=== PATIENT | female | born 1980 ===

== ENCOUNTER 2017-03-01 23:34 | Emergency (ER) | payer MEDICAID ==
[2017-03-01 23:52] VITALS: RESP 18; TEMP 98.1; O2SAT 99; BMI 33.3
[2017-03-01] MEDS ORDERED: Amoxicillin-Clav 875-125 mg Tab PO STA (23:56)
[2017-03-01] MEDS ORDERED: Oxycodone/Acetaminophen 5/325 mg Tab PO STA (23:56)
--- NOTE | 2017-03-02 00:08 | ED PDOC ---
Arrival/HPI - General Chief Complaint: Dental Pain Time Seen by Provider: 03/01/17 23:56 Historian: Patient - History of Present Illness Narrative History of Present Illness (Text): 03/02/17 00:05 36 y/o female, no significant pmh, nkda, c/o dental pain x 1 week. Pt. stated that she is scheduled to have 4 molars removed because they are all infected, started to have pain again tonight, no pain medication taken at home, no facial swelling, no dizziness, no night sweat, no rash, no other medical or psychological complaints. Past Medical History - Provider Review Nursing Documentation Reviewed: Yes - Infectious Disease Hx of Infectious Diseases: None - Reproductive Menopause: No - Cardiac Hx Cardiac Disorders: No - Pulmonary Hx Respiratory Disorders: No - Neurological Hx Neurological Disorder: No - HEENT Hx HEENT Disorder: No - Renal Hx Renal Disorder: No - Endocrine/Metabolic Hx Endocrine Disorders: No - Hematological/Oncological Hx Blood Disorders: No - Integumentary Hx Dermatological Disorder: No - Musculoskeletal/Rheumatological Hx Musculoskeletal Disorders: No - Gastrointestinal Hx Gastrointestinal Disorders: No - Genitourinary/Gynecological Hx Genitourinary Disorders: No - Psychiatric Hx Psychophysiologic Disorder: No Hx Substance Use: No Family/Social History - Physician Review Nursing Documentation Reviewed: Yes Family/Social History: Unknown Family HX Smoking Status: Never Smoked Hx Alcohol Use: Yes Frequency of alcohol use: Socially Hx Substance Use: No Allergies/Home Meds Allergies/Adverse Reactions: Allergies No Known Allergies Allergy (Verified 03/01/17 23:54) Review of Systems - Review of Systems Constitutional: absent: Fatigue, Fevers Eyes: absent: Vision Changes ENT: Other (dental pain). absent: Hearing Changes Respiratory: absent: SOB, Cough Cardiovascular: absent: Chest Pain Gastrointestinal: absent: Abdominal Pain, Diarrhea, Nausea, Vomiting Skin: absent: Rash, Pruritis, Skin Lesions Physical Exam Vital Signs Reviewed: Yes Vital Signs Temp Pulse Resp BP Pulse Ox 03/01/17 23:34 98.1 F 70 18 151/85 H 99 Temperature: Afebrile Blood Pressure: Hypertensive Pulse: Regular Respiratory Rate: Normal Appearance: Positive for: Well-Appearing, Non-Toxic Pain Distress: Severe Mental Status: Positive for: Alert and Oriented X 3 - Systems Exam Head: Present: Atraumatic, Normocephalic Pupils: Present: PERRL Extroacular Muscles: Present: EOMI Conjunctiva: Present: Normal Mouth: Present: Moist Mucous Membranes Pharnyx: Present: Other (visible multiple dental caries with broked brown discoloration noted on the bilateral upper and lower molars noted, no gingival abcess or gingivitis. ). No: ERYTHEMA, EXUDATE, TONSILS ENLARGED Neck: Present: Normal Range of Motion Respiratory/Chest: Present: Clear to Auscultation, Good Air Exchange. No: Respiratory Distress, Accessory Muscle Use Cardiovascular: Present: Regular Rate and Rhythm, Normal S1, S2. No: Murmurs Abdomen: Present: Normal Bowel Sounds. No: Tenderness, Distention, Peritoneal Signs Back: Present: Normal Inspection Upper Extremity: Present: Normal Inspection. No: Cyanosis, Edema Lower Extremity: Present: Normal Inspection. No: Edema Neurological: Present: GCS=15, Speech Normal, Motor Func Grossly Intact, Gait Normal, Memory Normal Skin: Present: Warm, Dry, Normal Color. No: Rashes Psychiatric: Present: Alert, Oriented x 3, Normal Insight, Normal Concentration Medical Decision Making ED Course and Treatment: 03/02/17 00:08 -augmentin/perococet/motrin and visicous lidocaine. -Discharge home with augmentin, naproxen, viscous lidocaine, stay hydrated, follow up with your own pmd and dentist within 2 days, return to the ER for any new or worsening signs or symptoms. - Medication Orders Current Medication Orders: Discontinued Medications Amoxicillin/Clavulanate Potassium (Augmentin 875 Mg-125 Mg Tab) 1 tab PO STAT STA PRN Reason: Protocol Stop: 03/01/17 23:57 Ibuprofen (Motrin Tab) 600 mg PO STAT STA Stop: 03/01/17 23:57 Lidocaine HCl (Lidocaine 2% Viscous) 15 ml PO STAT STA Stop: 03/01/17 23:57 Oxycodone/Acetaminophen (Percocet 5/325 Mg Tab) 1 tab PO STAT STA Stop: 03/01/17 23:57 - PA / WOOD MOLDER / Resident Statement MD/DO has reviewed & agrees with the documentation as recorded. Disposition/Present on Arrival - Present on Arrival Any Indicators Present on Arrival: No History of DVT/PE: No History of Uncontrolled Diabetes: No Urinary Catheter: No History of Decub. Ulcer: No History Surgical Site Infection Following: None - Disposition Have Diagnosis and Disposition been Completed?: Yes Diagnosis: Pain, dental, Dental caries Disposition: HOME/ ROUTINE Disposition Time: 00:09 Patient Plan: Discharge Condition: GOOD Additional Instructions: -Discharge home with augmentin, naproxen, viscous lidocaine, stay hydrated, follow up with your own pmd and dentist within 2 days, return to the ER for any new or worsening signs or symptoms. Prescriptions: Amoxicillin/Clavulanate [Augmentin 875 MG-125 MG] 1 tab PO BID #20 tab Lidocaine 2% Viscous [Lidocaine HCl Viscous 20 Ml] 20 ml MM BID PRN #200 ml PRN Reason: Other Naproxen 500 mg PO BID PRN #22 tab PRN Reason: Other Referrals: Julien Infante, MOHIT [Non-Staff] - Follow up with primary Forms: [facility] (Bulgarian), WORK NOTE
[2017-03-02 01:59] VITALS: BP 145/84; PULSE 74
== END 2017-03-02 01:10 | disposition home or self-care (01) ==
LOC: MERGE 23:34 → ED 23:34
DX: K02.9 Dental caries, unspecified (principal); K08.89 Other specified disorders of teeth and supporting structures

== ENCOUNTER 2017-03-02 13:38 | Emergency (ER) | payer MEDICAID ==
[2017-03-02 13:38] VITALS: BMI 33.3
[2017-03-02 13:50] VITALS: TEMP 98.4
[2017-03-02] MEDS ORDERED: Oxycodone/Acetaminophen 5/325 mg Tab PO STA (13:50)
--- NOTE | 2017-03-02 14:06 | ED PDOC ---
Arrival/HPI - General Chief Complaint: Dental Pain Time Seen by Provider: 03/02/17 13:49 Historian: Patient - History of Present Illness Narrative History of Present Illness (Text): 03/02/17 14:03 36yr old female presents today with 1 week history of worsen left lower molar pain. pt states she was seen in er last night and given augmentin and naproxen without improvement in pain. pt denies fever/chills. no trismus or drooling. denies abdominal pain. no cp or sob. no difficulty breathing or swallowing.pt states she has scheduled appointment with dentist in 2 weeks. no other complaints. Time/Duration: 1 week Symptom Course: Worsening Quality: Throbbing Severity Level: 10 Past Medical History - Provider Review Nursing Documentation Reviewed: Yes - Travel History Have you recently traveled outside [place] w/in the past 3 mons?: No - Infectious Disease Hx of Infectious Diseases: None - Tetanus Immunization Tetanus Immunization: Unknown - Cardiac Hx Cardiac Disorders: No - Pulmonary Hx Respiratory Disorders: No - Neurological Hx Neurological Disorder: No - HEENT Hx HEENT Disorder: No - Renal Hx Renal Disorder: No - Endocrine/Metabolic Hx Endocrine Disorders: No - Hematological/Oncological Hx Blood Disorders: No - Integumentary Hx Dermatological Disorder: No - Musculoskeletal/Rheumatological Hx Musculoskeletal Disorders: No - Gastrointestinal Hx Gastrointestinal Disorders: No - Genitourinary/Gynecological Hx Genitourinary Disorders: No - Psychiatric Hx Psychophysiologic Disorder: No Hx Substance Use: No - Anesthesia Hx Anesthesia: No Family/Social History - Physician Review Nursing Documentation Reviewed: Yes Family/Social History: Unknown Family HX Smoking Status: Never Smoked Hx Alcohol Use: Yes Hx Substance Use: No Allergies/Home Meds Allergies/Adverse Reactions: Allergies No Known Allergies Allergy (Verified 03/02/17 13:46) Review of Systems - Review of Systems Constitutional: absent: Fatigue, Fevers ENT: Other (dental pain) Respiratory: absent: SOB, Cough Cardiovascular: absent: Chest Pain, Palpitations Gastrointestinal: absent: Abdominal Pain, Vomiting Musculoskeletal: absent: Back Pain, Neck Pain Skin: absent: Rash, Pruritis Neurological: absent: Headache, Dizziness Psychiatric: absent: Anxiety, Depression Physical Exam Vital Signs Reviewed: Yes Vital Signs Temp Pulse Resp BP Pulse Ox 03/02/17 13:48 98.4 F 71 17 141/79 96 Temperature: Afebrile Blood Pressure: Normal Pulse: Regular Respiratory Rate: Normal Appearance: Positive for: Well-Appearing, Non-Toxic, Comfortable Pain Distress: None Mental Status: Positive for: Alert and Oriented X 3 - Systems Exam Head: Present: Atraumatic Mouth: Present: Moist Mucous Membranes, Normal Lips, Normal Tounge. No: Drooling, Trismus, Normal Teeth (poor dentition; multiple dental fracture, no surrounding erythema, no edema, no abscess noted. + dental fracture to right lower molar with tenderness. ) Pharnyx: Present: Normal. No: ERYTHEMA, EXUDATE Nose (Internal): Present: Normal Inspection Neck: Present: Normal Range of Motion, Trachea Midline. No: Lymphadenopathy Respiratory/Chest: Present: Clear to Auscultation, Good Air Exchange. No: Respiratory Distress, Accessory Muscle Use Cardiovascular: Present: Regular Rate and Rhythm, Normal S1, S2. No: Murmurs Neurological: Present: GCS=15 Skin: Present: Warm, Dry, Normal Color. No: Rashes Psychiatric: Present: Alert, Oriented x 3 Medical Decision Making ED Course and Treatment: 03/02/17 14:07 Patient is nontoxic well-appearing in no distress with stable vital signs No trismus or drooling, moist mucous membranes No record of the patient in [facility] aware. Toradol and Percocet given Patient reassessment: Patient is feeling better after medications. I advised follow-up with the dentist within the next 2 days. I advised immediate return is symptoms worsen persist or if new concerning symptoms develop. Patient was advised to continue Augmentin twice daily 10 days take Motrin every 6 hours as needed for pain. Patient was advised to take Percocets every 6 hours needed for moderate to severe pain. Patient was advised not to drive or operate heavy machinery while on Percocet. Patient verbalizes understanding of discharge instructions and need for immediate followup. Impression: Toothache, dental fracture Motrin every 6 hours as needed for pain Continue Augmentin twice daily 10 days Percocet 1 tablet every 6 hours as needed for moderate to severe pain: May cause drowsiness Follow-up with the dentist within the next 2 days Return immediately if symptoms worsen persist or if new concerning symptoms develop - Medication Orders Current Medication Orders: Discontinued Medications Ketorolac Tromethamine (Toradol) 60 mg IM STAT STA Stop: 03/02/17 13:51 Oxycodone/Acetaminophen (Percocet 5/325 Mg Tab) 1 tab PO STAT STA Stop: 03/02/17 13:51 Disposition/Present on Arrival - Present on Arrival Any Indicators Present on Arrival: No History of DVT/PE: No History of Uncontrolled Diabetes: No Urinary Catheter: No History of Decub. Ulcer: No History Surgical Site Infection Following: None - Disposition Have Diagnosis and Disposition been Completed?: Yes Diagnosis: Dental caries, Pain, dental Disposition: HOME/ ROUTINE Disposition Time: 14:09 Patient Plan: Discharge Condition: GOOD Discharge Instructions (ExitCare): Toothache (ED) Additional Instructions: Motrin every 6 hours as needed for pain Continue Augmentin twice daily 10 days Percocet 1 tablet every 6 hours as needed for moderate to severe pain: May cause drowsiness Follow-up with the dentist within the next 2 days Return immediately if symptoms worsen persist or if new concerning symptoms develop Discontinue the use of Naproxen if you are going to take 600mg of motrin every 6 hours. Take pepcid once daily. Prescriptions: Famotidine [Pepcid] 20 mg PO DAILY #30 tab Ibuprofen [Motrin] 600 mg PO Q6H PRN #20 tab PRN Reason: pain/fever reduction oxyCODONE/Acetaminophen [Percocet 5/325 mg Tab] 1 tab PO Q6H PRN #8 tab PRN Reason: moderate to severe pain Referrals: Julien Infante DMD [Non-Staff] - Follow up with primary Georges Huitron DMD [Staff Provider] - Follow up with primary Tone Maciel MD [Staff Provider] - Follow up with primary Forms: [email or web address] (Slovenian), WORK NOTE
[2017-03-02 14:21] VITALS: BP 140/75; PULSE 68; RESP 18; O2SAT 97
== END 2017-03-02 14:21 | disposition home or self-care (01) ==
LOC: MERGE 13:38 → ED 13:38
DX: K02.9 Dental caries, unspecified (principal); K08.89 Other specified disorders of teeth and supporting structures
CPT/HCPCS: 96372; 99284; J1885

== ENCOUNTER 2017-10-13 16:58 | Emergency (ER) | payer MEDICAID ==
[2017-10-13 16:59] VITALS: BMI 33.3
[2017-10-13 17:28] VITALS: TEMP 99.4
--- NOTE | 2017-10-13 18:16 | ED PDOC ---
Arrival/HPI - General Chief Complaint: Headache Time Seen by Provider: 10/13/17 18:09 Historian: Patient - History of Present Illness Narrative History of Present Illness (Text): 10/13/17 18:11 Pt is a 37 yr old female with no significant PMH presents to the emergency department with right occipital pain for the past 4 months that has been worsening over the last 2 days. Pt says she has a lot of stress that often triggers her pain along with palpitations, nausea and forced vomiting. Describes feeling pain at the base of her neck that travels up to her head with associated 'black spots' inher vision at times. More recently, she has noticed shaking, heaviness in her chest, blurred vision and a racing heart that occurs without warning. Denies LOC, psychiatric condition, back pain fever, diarrhea, recent illness or travel. Time/Duration: > month Symptom Onset: Gradual Symptom Course: Unchanged, Worsening Quality: Aching, Pressure Severity Level: 6 Activities at Onset: Rest Context: Home, Work Past Medical History - Provider Review Nursing Documentation Reviewed: Yes - Travel History Have you recently traveled outside [place] w/in the past 3 mons?: No - Past History Past History: No Previous - Infectious Disease Hx of Infectious Diseases: None - Tetanus Immunization Tetanus Immunization: Unknown - Reproductive Menopause: No - Cardiac Hx Cardiac Disorders: No - Pulmonary Hx Respiratory Disorders: No - Neurological Hx Neurological Disorder: No - HEENT Hx HEENT Disorder: No - Renal Hx Renal Disorder: No - Endocrine/Metabolic Hx Endocrine Disorders: No - Hematological/Oncological Hx Blood Disorders: No - Integumentary Hx Dermatological Disorder: No - Musculoskeletal/Rheumatological Hx Musculoskeletal Disorders: No - Gastrointestinal Hx Gastrointestinal Disorders: No - Genitourinary/Gynecological Hx Genitourinary Disorders: No - Psychiatric Hx Psychophysiologic Disorder: No Hx Substance Use: No - Anesthesia Hx Anesthesia: No Family/Social History - Physician Review Nursing Documentation Reviewed: Yes Family/Social History: Unknown Family HX Smoking Status: Never Smoked Hx Alcohol Use: Yes Hx Substance Use: No Allergies/Home Meds Allergies/Adverse Reactions: Allergies No Known Allergies Allergy (Verified 03/02/17 13:46) Review of Systems - Review of Systems Constitutional: Normal, Fatigue Eyes: Normal, Vision Changes ENT: Normal Respiratory: Normal Cardiovascular: Normal Gastrointestinal: Nausea, Vomiting, Appetite Changes Genitourinary Female: Normal Musculoskeletal: Neck Pain Skin: Normal Neurological: Headache, Dizziness. absent: Gait Changes, Speech Changes, Facial Droop Endocrine: Normal Hemo/Lymphatic: Normal Psychiatric: Anxiety, Depression Physical Exam Vital Signs Reviewed: Yes Vital Signs Temp Pulse Resp BP Pulse Ox 10/13/17 20:11 82 18 142/87 100 10/13/17 17:20 99.4 F 97 H 20 153/85 H 98 Temperature: Afebrile Blood Pressure: Hypertensive Pulse: Regular Respiratory Rate: Normal Appearance: Positive for: Well-Appearing, Non-Toxic, Comfortable Pain Distress: Mild Mental Status: Positive for: Alert and Oriented X 3 - Systems Exam Head: Present: Atraumatic, Normocephalic Pupils: Present: PERRL Extroacular Muscles: Present: EOMI Conjunctiva: Present: Normal Neck: Present: Normal Range of Motion, Paraspinal Tenderness. No: Meningeal Signs, MIDLINE TENDERNESS, JVD, Lymphadenopathy Respiratory/Chest: Present: Clear to Auscultation, Good Air Exchange. No: Respiratory Distress, Accessory Muscle Use Cardiovascular: Present: Regular Rate and Rhythm, Normal S1, S2, Peripheal Pulses Present. No: Murmurs Abdomen: No: Tenderness, Distention, Peritoneal Signs Back: Present: Normal Inspection Upper Extremity: Present: Normal Inspection, Normal ROM, NORMAL PULSES, Tenderness (left upper trapezius), Neurovascularly Intact. No: Cyanosis, Edema Lower Extremity: Present: Normal Inspection. No: Edema Neurological: Present: GCS=15, CN II-XII Intact, Speech Normal Skin: Present: Warm, Dry, Normal Color. No: Rashes Psychiatric: Present: Alert, Oriented x 3, Normal Insight, Normal Concentration , Anxious Medical Decision Making ED Course and Treatment: 10/13/17 18:16 Impression Pt is a 37 yr old female with no significant PMH presents to the emergency department with right occipital pain for the past 4 months that seem to be worsening. Working Dx: Subarachnoid bleed, migraine, tension LEONARD secondary to panic/anxiety Plan LEONARD workup ECG and Cardiac ISO Head CT w/o contrast Toradol, Zofran Progress Note Pt reports feeling much more relaxed and comfortable after Toradol and Zofran; LEONARD ceased Discussed need to follow up with a PMD for regular monitoring of symptoms Advised counseling for Panic and anxiety; stress management through CBT Discussed medication use and adverse effects - Lab Interpretations Lab Results: 10/13/17 18:50 10/13/17 18:50 Lab Results 10/13/17 18:50: Sodium 141, Potassium 3.8, Chloride 104, Carbon Dioxide 27, Anion Gap 15, BUN 13, Creatinine 0.8, Est GFR ( Amer) > 60, Est GFR (Non- Af Amer) > 60, Random Glucose 97, Calcium 9.3, Total Bilirubin 0.2, AST 51 H, ALT 81 H, Alkaline Phosphatase 112, Lactate Dehydrogenase 497, Total Creatine Kinase 114, Troponin I < 0.01, Total Protein 8.4 H, Albumin 4.8, Globulin 3.6, Albumin/Globulin Ratio 1.3 10/13/17 18:50: Urine Color Yellow, Urine Appearance Clear, Urine pH 6.0, Ur Specific Cushing 1.025, Urine Protein Negative, Urine Glucose (UA) Negative, Urine Ketones Negative, Urine Blood Trace-intact H, Urine Nitrate Negative, Urine Bilirubin Negative, Urine Urobilinogen 0.2, Ur Leukocyte Esterase Negative , Urine RBC 0 - 2, Urine WBC Negative, Ur Epithelial Cells 3 - 4, Urine Bacteria Few 10/13/17 18:50: WBC 7.8, RBC 4.76, Hgb 13.2, Hct 39.5, MCV 83.0, MCH 27.7, MCHC 33.4, RDW 13.6, Plt Count 297, MPV 10.5, Gran % 71.9 H, Lymph % (Auto) 22.2, Larue % (Auto) 4.1, Eos % (Auto) 1.7, Baso % (Auto) 0.1, Gran # 5.59, Lymph # ( Auto) 1.7, Larue # (Auto) 0.3, Eos # (Auto) 0.1, Baso # (Auto) 0.01, ESR 35 H I have reviewed the lab results: Yes Interpretation: No clinic. lab abnormalty - RAD Interpretation Narrative RAD Interpretations (Text): 10/13/17 19:55 EXAM: CT Head Without Intravenous Contrast EXAM DATE/TIME: 10/13/2017 6:09 PM CLINICAL HISTORY: The patient age is 37 years old and is female; Pain; Headache; Headache not specified Facility exam id and description: Ct_heads head w/o contrast TECHNIQUE: Axial computed tomography images of the head/brain without intravenous contrast. All CT scans at this facility use one or more dose reduction techniques, viz.: automated exposure control; ma/kV adjustment per patient size (including targeted exams where dose is matched to indication; i.e. head); or iterative reconstruction technique. Coronal and sagittal reformatted images were created and reviewed. COMPARISON: No relevant prior studies available. FINDINGS: Brain: The white-mazariegos differentiation is preserved demonstrating no acute territorial type infarct. No acute intracranial hemorrhage is seen. Midline shift: There is no midline shift. Ventricles: No ventriculomegaly. Bones/joints: The calvarium demonstrates no evidence for a depressed fracture. Soft tissues: No acute abnormality. Lymph nodes: Intraparotid lymph nodes are seen bilaterally. On the left side, this measures 1.0 x 0.8 cm. Sinuses: There is mild mucosal thickening of the right maxillary sinus. A mucous retention cyst or polyp is visualized within the left maxillary sinus. Mastoid air cells: No mastoid effusion. IMPRESSION: 1. No acute intracranial abnormality. 2. Paranasal sinus disease is noted above. 3. Intraparotid lymph nodes are seen bilaterally. Radiology Orders: 10/13/17 18:09 HEAD W/O CONTRAST [CT] Stat - EKG Interpretation Interpreted by ED Physician: Yes (NSR with Rate of 64 bpm) - Medication Orders Current Medication Orders: Discontinued Medications Ketorolac Tromethamine (Toradol) 30 mg IVP STAT STA Stop: 10/13/17 18:10 Last Admin: 10/13/17 18:48 Dose: 30 mg MAR Pain Assessment Document 10/13/17 18:48 HI (Rec: 10/13/17 18:48 HI [id number]) Pain Reassessment Is this a pain reassessment? No Sleep Is patient sleeping during reassessment? 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 Ulcer: No History Surgical Site Infection Following: None - Disposition Have Diagnosis and Disposition been Completed?: Yes Diagnosis: Anxiety, Panic anxiety syndrome, Headache, tension type, chronic Disposition: HOME/ ROUTINE Disposition Time: 19:42 Patient Plan: Discharge Condition: GOOD Discharge Instructions (ExitCare): Tension Headache, Panic Disorder (DC) Additional Instructions: Agueda, thank you for letting us take care of you today. Your provider was KIARRA Santiago. You were treated for tension headache and anxiety. The emergency medical care you received today was directed at your acute symptoms. If you were prescribed any medication, please fill it and take as directed. It may take several days for your symptoms to resolve. Return to the Emergency Department if your symptoms worsen, do not improve, or if you have any other problems. Please contact your doctor or call one of the physicians/clinics you have been referred to that are listed on the Patient Visit Information form that is included in your discharge packet. Bring any paperwork you were given at discharge with you along with any medications you are taking to your follow up visit. Our treatment cannot replace ongoing medical care by a primary care provider (PCP) outside of the emergency department. Thank you for allowing the [facility] team to be part of your care today. If you had an X-Ray or CT scan: A Radiologist will review the ED reading if any change in treatment is needed we will contact you. If you had a blood, urine, or wound culture: It will take several days for the results, if any change in treatment is needed we will contact you. Prescriptions: Cyclobenzaprine [Flexeril] 5 mg PO TID 5 Days #15 tab Hydroxyzine HCl 50 mg PO Q6 5 Days #20 tablet Ibuprofen [Motrin Tab] 600 mg PO Q6 PRN 5 Days #20 tab PRN Reason: pain/fever Forms: [employer] (Montenegrin), WORK NOTE
[2017-10-13 18:56] LABS: BASO # 0.01 K/mm3 (0.0-2.0); BASO % 0.1 % (0.0-3.0); EOS # 0.1 (0.0-0.7); EOS % 1.7 % (1.5-5.0); GRAN # 5.59 (1.4-6.5); GRAN % 71.9 % (50.0-68.0); HEMOGLOBIN 13.2 g/dL (12.0-16.0); LYMPH # 1.7 (1.2-3.4); LYMPH % 22.2 % (22.0-35.0); MEAN CORPUSCULAR HEMOGLOBIN 27.7 pg (25.0-35.0); MEAN CORPUSCULAR HGB CONC 33.4 g/dl (31.0-37.0); MEAN PLATELET VOLUME 10.5 fl (7.0-11.0); MONO # 0.3 (0.1-0.6); MONO % 4.1 % (1.0-6.0); RBC 4.76 10^6/uL (3.5-6.1); RED CELL DISTRIBUTION WIDTH 13.6 % (11.5-14.5); WHITE BLOOD COUNT 7.8 10^3/ul (4.5-11.0)
[2017-10-13 18:57] LABS: URINE BILIRUBIN NEGATIVE (NEGATIVE); URINE BLOOD TRACE-INTACT (NEGATIVE); URINE GLUCOSE (UA) NEGATIVE (NEGATIVE); URINE LEUKOCYTE ESTERASE NEGATIVE Leu/uL (NEGATIVE); URINE PROTEIN NEGATIVE mg/dL (<30 mg/dL); URINE UROBILINOGEN 0.2 E.U./dL (<1 E.U./dL)
[2017-10-13 19:05] LABS: ALB/GLOB RATIO 1.3 (1.1-1.8); ALBUMIN 4.8 g/dL (3.0-4.8); ALT/SGPT 81 U/L (7-56); AST/SGOT 51 U/L (14-36); BLOOD UREA NITROGEN 13 mg/dL (7-21); CALCIUM 9.3 mg/dL (8.4-10.5); GFR AFRICAN-AMERICAN > 60; GFR NON-AFRICAN AMERICAN > 60; URINE APPEARANCE CLEAR (CLEAR); URINE COLOR YELLOW (YELLOW)
[2017-10-13 19:14] LABS: URINE BACTERIA FEW (NEG); URINE RBC 0 - 2 /hpf (0-2); URINE WBC NEGATIVE /hpf (0-6)
[2017-10-13 19:17] LABS: TROPONIN I < 0.01 ng/mL
--- NOTE | 2017-10-13 19:47 | CT ---
EXAM: CT Head Without Intravenous Contrast EXAM DATE/TIME: 10/13/2017 6:09 PM CLINICAL HISTORY: The patient age is 37 years old and is female; Pain; Headache; Headache not specified Facility exam id and description: Ct heads head w/o contrast TECHNIQUE: Axial computed tomography images of the head/brain without intravenous contrast. All CT scans at this facility use one or more dose reduction techniques, viz.: automated exposure control; ma/kV adjustment per patient size (including targeted exams where dose is matched to indication; i.e. head); or iterative reconstruction technique. Coronal and sagittal reformatted images were created and reviewed. COMPARISON: No relevant prior studies available. FINDINGS: Brain: The white-mazariegos differentiation is preserved demonstrating no acute territorial type infarct. No acute intracranial hemorrhage is seen. Midline shift: There is no midline shift. Ventricles: No ventriculomegaly. Bones/joints: The calvarium demonstrates no evidence for a depressed fracture. Soft tissues: No acute abnormality. Lymph nodes: Intraparotid lymph nodes are seen bilaterally. On the left side, this measures 1.0 x 0.8 cm. Sinuses: There is mild mucosal thickening of the right maxillary sinus. A mucous retention cyst or polyp is visualized within the left maxillary sinus. Mastoid air cells: No mastoid effusion. IMPRESSION: 1. No acute intracranial abnormality. 2. Paranasal sinus disease is noted above. 3. Intraparotid lymph nodes are seen bilaterally.
[2017-10-13 20:14] VITALS: BP 142/87; PULSE 82; RESP 18; O2SAT 100
--- NOTE | 2017-10-13 21:16 | CARD ---
APPROVED REPORT EKG Measurement Heart [id number] <Conclusion> Normal sinus rhythm Cannot rule out Anterior infarct, age undetermined Abnormal ECG
== END 2017-10-13 20:14 | disposition home or self-care (01) ==
LOC: ED 16:58
DX: G44.209 Tension-type headache, unspecified, not intractable (principal); F41.0 Panic disorder [episodic paroxysmal anxiety]
CPT/HCPCS: 70450; 80053; 81001; 82550; 83615; 84484; 85025; 85651; 93005; 96374; 99285; J1885